=== PATIENT | male | born 1985 | race Caucasian/White ===

== ENCOUNTER 2021-02-08 17:08 | Emergency (ER) | payer OTHER, BC, SELFPAY ==
[2021-02-08 17:11] VITALS: BP 129/90; PULSE 86; RESP 16; TEMP 35.9; O2SAT 98; BMI 24.0
--- NOTE | 2021-02-08 17:36 | CT_ITS ---
STUDY: CT BRAIN WITHOUT CONTRAST REASON FOR EXAM: Male, 35 years old. Hit back of head against a machine at work. RADIATION DOSAGE (If Supplied By Facility): CTDIvol = ( 44.99 ) mGy, DLP = ( 917.03 ) mGycm TECHNIQUE: Transaxial CT imaging of the brain was performed without administration of intravenous contrast material. Individualized dose optimization techniques were used for this CT. COMPARISON: No relevant priors. FINDINGS: Question minimal subcutaneous hematoma over the midline occiput. Normal calvarium. Normal size ventricles and extra-axial spaces for the patient''s age. Normal white matter tracts of the cerebral hemispheres. Normal basal ganglia and thalami. Normal brainstem. Normal cerebellum. There is no intracranial hemorrhage. There are no findings of an acute ischemic infarction. Normal visualized paranasal sinuses. CT/Brain/Head without Contrast IMPRESSION: Normal unenhanced CT scan of the brain. Electronically Signed: Devon Cain DO at 18:00 EDT Tel [phone], Service support ,
[2021-02-08] MEDS: Acetaminophen 325 MG Tablet 650 MG PO (17:40)
--- NOTE | 2021-02-08 17:51 | EDS_ITS ---
HPI History of Present Illness Chief Complaint: Head Injury Informant: patient Narrative Narrative: Patient is a 35-year-old male present with head injury. Patient was at work when a pressurized piece popped off and hit the patient the back of his head. He tried to shield his head but was not fast enough. He denies any loss of consciousness. He notes his eyes did tear initially. He has an associated headache and feels a little dazed. He came in for further evaluation. He is not on any blood thinners. He takes NSAIDs for his chronic back pain. Denies any numbness or tingling. Denies any vision changes. No other complaints at this time. PFSH PFSH Medical History no medical history Allergy/AdvReac Type Severity Reaction Status Date / Time avocado Allergy Hives Verified 02/08/21 17:10 meloxicam [From Mobic] Allergy Rash Verified 02/08/21 17:10 salmon oil Allergy Hives Verified 02/08/21 17:10 shrimp Allergy Hives Verified 02/08/21 17:10 Surgical History no surgical history Social History Smoking Status: Never smoker ROS ROS ED Constitutional Constitutional ED: Denies fever(s) Eyes Eyes: Denies change in vision or eye pain ENT ENT ED: Denies dental pain, mouth lesions or nasal trauma Cardiovascular Cardiovascular: Denies chest pain or syncope Respiratory/Chest Respiratory/Chest: Denies cough or dyspnea Gastrointestinal Gastrointestinal: Denies abdominal pain or nausea Genitourinary Genitourinary ED: Denies dysuria or hematuria Musculoskeletal Musculoskeletal: Denies arthralgias, back pain or myalgias Integumentary Denies Abrasions or wounds Neurologic Neurologic: Reports headache(s); Denies paresthesias or weakness Psychiatric Psychiatric: Denies anxiety or depression Hematologic/Lymphatic Hematologic/Lymphatic: Denies easy bleeding or easy bruising EXAM Physical Exam Const Vital Signs: 02/08/21 17:11 Temperature 96.7 F L Temperature Source Temporal Pulse Rate 86 Respiratory Rate 16 Blood Pressure 129/90 H Blood Pressure Mean 103 Pulse Ox 98 Oxygen Delivery Method Room Air Positive well nourished and well developed General Appearance ED: well developed HEENT Reports TM's clear HEENT Narrative: Patient has a slightly asymmetric smile with the right side not moving up as high as the left. Patient is not sure if this is chronic or not. Cephalhematoma to the posterior scalp approximately 3 cm in diameter. No palpable skull fracture appreciated. trauma and tenderness Nose: Negative for septum abnormal Tympanic Membrane ED: Yes TM's clear Eyes PERRL and EOMs intact bilaterally Neck full ROM General: Negative for tenderness Chest Wall inspection of chest normal Resp normal respiratory effort Cardio regular rhythm Rate: regular rate GI normal to inspection, nondistended, normoactive bowel sounds Back/Spine normal to inspection Neuro oriented x3, CN's II-XII intact bilaterally, no focal motor deficits and no sensory deficits noted Sensorium / Orientation: alert and oriented to person Motor Exam: strength 5/5 throughout Psych mental status grossly normal Skin no rashes or lesions noted MDM MDM MDM Narrative Medical decision making narrative: Patient evaluated after closed head injury. He does have an asymmetric smile however no changes in his nasolabial fold bilaterally. Is given Tylenol for pain. CT obtained does not show any acute fracture intracranial process. Patient discharged home with diagnosis of concussion and closed head injury. Will follow up with [facility]. Patient is counseled on signs and symptoms requiring return to the emergency room. Patient verbalizes agreement and understand this plan. Patient discharged home in stable and improved condition. Radiography Diagnostic Testing: Clinical Impression(s) from Imaging Studies Brain CT 02/08/21 17:36 IMPRESSION: Normal unenhanced CT scan of the brain. Electronically Signed: Devon Cain DO at 18:00 EDT Tel [phone], Service support , Discharge Plan Triage Chief Complaint: Head Injury ED Provider: Nell Dickson Dx/Rx/DC Orders Clinical Impression: Hematoma of occipital region of scalp, Concussion Instructions: ED Concussion, ED Head Injury (Adult) Primary Care Provider: Care Physician,No Primary Referrals: [facility] [GROUP OF PHYSICIANS] - Care Physician,No Primary [Primary Care Provider] - Activity Restrictions/Additional Instructions: Alternate Tylenol and ibuprofen as needed for pain. Ice to the area. Disposition Disposition: Home, Self Care
== END 2021-02-08 18:54 | disposition home or self-care (01) ==
PROVIDERS: Emergency Provider Emergency Medicine
DX: S06.0X0A Concussion without loss of consciousness, initial encounter (principal); S00.03XA Contusion of scalp, initial encounter; W31.89XA Contact with other specified machinery, initial encounter; Y93.89 Activity, other specified; Y92.89 Other specified places as the place of occurrence of the external cause; Y99.0 Civilian activity done for income or pay; G89.29 Other chronic pain; M54.9 Dorsalgia, unspecified
CPT/HCPCS: 70450; 99282